=== PATIENT | male | born 1965 | race Two or more races ===

== ENCOUNTER 2018-12-21 22:58 | Emergency (ER) | payer OTHER ==
[2018-12-22] MEDS ORDERED: DEXAMETHASONE SOD PHOS INJ 10 MG/1 ML VIAL IM ONE (02:55)
[2018-12-22] MEDS ORDERED: IBUPROFEN 600 MG TABLET PO ONE (02:55)
--- NOTE | 2018-12-22 02:57 | ER Document Report ---
HPI - HPI Patient complains to provider of: sore throat, fever Time Seen by Provider: 12/22/18 02:29 Pain Level: 3 Context: Patient is a 53-year-old male that comes to the emergency department for chief complaint of sinus pain, a sore throat, and fevers, he has also had some cough which started 4 days ago but is almost resolved. Throat has gotten worse. He does have multiple sick family members with similar symptoms although his throat is worse than theirs. He denies chest pain, difficulty breathing, headache, vomiting, abdominal pain. He has not had the influenza vaccine this year. Past Medical History - General Information source: Patient - Social History Smoking Status: Never Smoker Frequency of alcohol use: None Drug Abuse: None Lives with: Family Family History: Reviewed & Not Pertinent - Medical History Medical History: Negative Surgical Hx: Negative - Immunizations Immunizations up to date: Yes Hx Diphtheria, Pertussis, Tetanus Vaccination: Yes Vertical Provider Document - CONSTITUTIONAL General Appearance: No Apparent Distress. negative: WD/WN - Patient is flushed but he is otherwise well-appearing - INFECTION CONTROL TRAVEL OUTSIDE OF THE [place] IN LAST 30 DAYS: No - HEENT HEENT: Atraumatic, Normocephalic. negative: Normal ENT Exam - Erythema of the posterior pharynx without exudate, swelling, or abscess. Tenderness over the maxillary sinuses bilaterally with some mixed sinus drainage - NECK Neck: Other - Mild bilateral anterior cervical adenopathy, otherwise unremarkable - RESPIRATORY Respiratory: Breath Sounds Normal, No Respiratory Distress - CARDIOVASCULAR Cardiovascular: Regular Rate, Regular Rhythm - GI/ABDOMEN Gastrointestinal: Abdomen Soft, Abdomen Non-Tender - BACK Back: Normal Inspection - MUSCULOSKELETAL/EXTREMETIES Musculoskeletal/Extremeties: MAEW, FROM, Non-Tender - NEURO Level of Consciousness: Awake, Alert, Appropriate - DERM Integumentary: Warm, Dry, No Rash Course - Re-evaluation Re-evalutation: Patient with probable viral illness, however he states his fevers have been getting worse, his sinus pain and throat are worse. Influenza negative, strep negative. No evidence of peritonsillar abscess on exam. Clear lungs, no cough noted. He does have sick family members. Possible developing sinus infection although it is still early. I did discuss options for treatment, because he is significantly worsening with fever and sinus pain he will be treated for suspected sinusitis, he was given dexamethasone for his throat and lymph nodes. He states he will follow-up with primary care and return if he worsens. Discus sed return precautions in detail. Patient states satisfaction and agreement with plan. Stable at time of discharge. Discharge - Discharge Clinical Impression: Sore throat Sinusitis Qualifiers: Sinusitis location: maxillary Chronicity: acute Recurrence: non-recurrent Qualified Code(s): J01.00 - Acute maxillary sinusitis, unspecified Fever Qualifiers: Fever type: unspecified Qualified Code(s): R50.9 - Fever, unspecified Condition: Stable Disposition: HOME, SELF-CARE Additional Instructions: No tienes gripe ni estreptococo. Peck examen muestra un virus y probablemente danyelle infeccin sinusal en desarrollo. Te tratamos por esto con antibiticos. Puede [place] un aerosol nasal y medicamentos de venta jim para los sntomas. [place]. El da despus de que cesen tus fiebres puedes volver al trabajo. Regrese si empeora (no puede respirar, no puede tragar, si tiene un dolor de niels terrible, etc.). Prescriptions: Amoxicillin Trihydrate [Amoxil 500 mg Capsule] 1,000 mg PO TID 7 Days #42 capsule Forms: Return to Work
[2018-12-22 03:44] LABS: A TYPE INFLUENZA AG NEGATIVE (NEGATIVE); B INFLUENZA AG NEGATIVE (NEGATIVE)
[2018-12-22 05:39] VITALS: BP 150/82
== END 2018-12-22 04:36 | disposition home or self-care (01) ==
LOC: ER 22:58
DX: J01.00 Acute maxillary sinusitis, unspecified (principal); J02.9 Acute pharyngitis, unspecified; J34.89 Other specified disorders of nose and nasal sinuses; R50.9 Fever, unspecified; R05 Cough
CPT/HCPCS: 99283; 96372; 87070; 87880; 87804; J1100